=== PATIENT | male | born 1935 | race Caucasian/White ===

== ENCOUNTER 2019-03-12 14:49 | Emergency (ER) | payer MEDICARE ==
[2019-03-12 14:59] VITALS: BP 122/78; PULSE 87; RESP 18; TEMP 98.5
--- NOTE | 2019-03-12 16:52 | XR ---
EXAMINATION TYPE: XR forearm RT DATE OF EXAM: 03/12/2019 COMPARISON: NONE HISTORY: Pain TECHNIQUE: 2 views FINDINGS: There is spurring on the olecranon process of the ulna. There is calcification at the radio humeral joint. There is narrowing of the radiocarpal joint space with mild spur formation. I see no f racture nor dislocation. There is moderate narrowing and spurring at the first carpometacarpal joint. There is no sign of elbow joint effusion. IMPRESSION: Osteoarthritis. No fracture.
--- NOTE | 2019-03-12 16:53 | XR ---
EXAMINATION TYPE: XR Hip RT and AP Pelvis DATE OF EXAM: 03/12/2019 COMPARISON: NONE HISTORY: Pain TECHNIQUE: A single AP view of the pelvis is obtained. Two views of the right hip are obtained. FINDINGS: The pelvic ring is intact. There are multiple pins fixing an apparent old subcapital fractu re of the right femur. I see no acute fracture. Sacroiliac joints appear normal. There is mild acetab ular spurring. IMPRESSION: No acute abnormality of the pelvis and right hip.
--- NOTE | 2019-03-12 17:05 | ED ---
Fall HPI - General Chief Complaint: Fall Stated Complaint: Fall, arm pain Time Seen by Provider: 03/12/19 15:43 Source: patient, RN notes reviewed, old records reviewed Mode of arrival: wheelchair - History of Present Illness Initial Comments: Patient is a 83 year old male with right forearm bruising, abrasions and right hip pain after fall. He reports he has a history of Parkinson's disease and has trouble with balance. Patient states that he had no other injury related to fall. He does state he was not ambulating at the time with a walker, and was useing a walking stick. Patient has history of right hip fracture repared with ORIF. Review of Systems ROS Statement: Those systems with pertinent positive or pertinent negative responses have been documented in the HPI. ROS Other: All systems not noted in ROS Statement are negative. Past Medical History Additional Past Medical History / Comment(s): glaucoma, parkinsons History of Any Multi-Drug Resistant Organisms: None Reported Past Surgical History: Orthopedic Surgery Past Psychological History: No Psychological Hx Reported Smoking Status: Never smoker Past Alcohol Use History: None Reported Past Drug Use History: None Reported General Exam - General Exam Comments Initial Comments: This is a 83 year old male, no distress. Limitations: no limitations General appearance: alert Head exam: Present: atraumatic, normocephalic, normal inspection Eye exam: Present: normal appearance, PERRL, EOMI. Absent: scleral icterus, conjunctival injection, periorbital swelling ENT exam: Present: normal exam, mucous membranes moist Neck exam: Present: normal inspection. Absent: tenderness, meningismus, lymphadenopathy Respiratory exam: Present: normal lung sounds bilaterally. Absent: respiratory distress, wheezes, rales, rhonchi, stridor Cardiovascular Exam: Present: regular rate, normal rhythm, normal heart sounds. Absent: systolic murmur, diastolic murmur, rubs, gallop, clicks GI/Abdominal exam: Present: soft, normal bowel sounds. Absent: distended, tenderness, guarding, rebound, rigid Extremities exam: Present: normal inspection, full ROM, normal capillary refill, other (contusion measuring 5 cm over right proximal ulna. Patient has small abrasion over arm. full ROM of elbow and forearm noted. ). Absent: tenderness, pedal edema, joint swelling, calf tenderness Right Hip exam: Present: normal inspection, full ROM Upper Leg exam: Present: normal inspection, full ROM Knee exam: Present: normal inspection, full ROM Gait: observed and normal Back exam: Present: normal inspection Neurological exam: Present: alert, oriented X3, CN II-XII intact, other (resting tremor noted. ) Psychiatric exam: Present: normal affect, normal mood Skin exam: Present: warm, dry, intact, normal color. Absent: rash Course Vital Signs 03/12/19 14:55 Temperature 98.5 F Pulse Rate 87 Respiratory 18 Rate Blood Pressure 122/78 O2 Sat by Pulse 96 Oximetry Medical Decision Making - Medical Decision Making 83 year old male, Hx of parkinson disease lost balance today and fell on R forearm and hip. He has contusion and abrasion over forearm, abrasion cleaned and dressed with bandage. Patient has full range of motion of all extremity adn able to bear weight. He has a noted resting tremor concsitent with diagnosis of parkinson's disease. Patient xrays are negative for fracture. Discussed if symptoms persist to follow up with ortho. Discussed strict return parameters. Patient advised to ambulate with walker. All questions answered. - Radiology Data Radiology results: report reviewed Forearm xray is negative for fracture. R hip xray is negative for fracture or dislocation. Disposition Clinical Impression: Fall, Abrasion of arm, right, Contusion of right hip, Arm contusion Disposition: HOME SELF-CARE Condition: Good Instructions (If sedation given, give patient instructions): Fall Prevention for Older Adults (ED) Additional Instructions: Patient advised to follow-up with your primary care doctor. Return to emergency department if any alarming signs or symptoms occur. Patient should take Motrin Tylenol at home pain medication. Ice the areas that are sore. Is patient prescribed a controlled substance at d/c from ED?: No Referrals: Tod Fisher MD [Primary Care Provider] - 1-2 days Time of Disposition: 17:04
== END 2019-03-12 17:19 | disposition home or self-care (01) ==
LOC: EC 14:49
DX: S50.11XA Contusion of right forearm, initial encounter (principal); S70.01XA Contusion of right hip, initial encounter; G20 Parkinson's disease; W19.XXXA Unspecified fall, initial encounter
CPT/HCPCS: 73502; 99284

== ENCOUNTER 2019-04-02 09:51 | Emergency (ER) | payer MEDICARE ==
[2019-04-02 09:58] VITALS: RESP 18; TEMP 98.1
[2019-04-02] MEDS ORDERED: ACETAMINOPHEN TAB 500 MG TAB PO STA (10:06)
--- NOTE | 2019-04-02 10:13 | ED ---
Fall HPI - General Chief Complaint: Fall Stated Complaint: fall, back pain Time Seen by Provider: 04/02/19 09:59 Source: patient Mode of arrival: wheelchair - History of Present Illness Initial Comments: Patient is a 83-year-old male with a history of Parkinson's presents to ER after falling yesterday around 5 PM. Patient states he was in the bathroom and fell onto his right side. Patient states with history of Parkinson's he has trouble with balance. Patient states he felt okay initially and then yesterday evening started developing right-sided back pain. Patient states does have a history of ORIF of the right hip. Patient states he has pain with walking. Patient denies LOC or hitting his head. Patient denies injuries anywhere else. Patient states his pain is mostly in the right thoracic area with some radiation down into his right hip. Patient took Tylenol last night which did help with the pain. He did not take anything today. - Related Data Home Medications Medication Instructions Recorded Confirmed Amantadine HCl [Amantadine] 100 mg PO BID@1100,2200 04/02/19 04/02/19 Aspirin EC [Ecotrin Low Dose] 81 mg PO HS@0 04/02/19 04/02/19 Atorvastatin [Lipitor] 10 mg PO HS@219904/02/19 04/02/19 Carbidopa-Levodopa 25-100 mg 1 tab PO QID@0800,1100,14,18 04/02/19 04/02/19 [Sinemet 25-100] LORazepam [Ativan] 0.25 mg PO DAILY PRN 04/02/19 04/02/19 Latanoprost [Xalatan 0.005%] 1 drop BOTH EYES HS 04/02/19 04/02/19 Rasagiline Mesylate 1 mg PO DAILY@1100 04/02/19 04/02/19 Timolol [Betimol 0.5% Ophth Soln] 1 drop BOTH EYES DAILY 04/02/19 04/02/19 l-Mefol/A-Cyst/Meb12/Algal Oil 1 tab PO DAILY@0800 04/02/19 04/02/19 [Cerefolin Nac Caplet] lamoTRIgine [LaMICtal] 150 mg PO BID@1100,2200 04/02/19 04/02/19 Allergies Allergy/AdvReac Type Severity Reaction Status Date / Time No Known Allergies Allergy Verified 04/02/19 10:13 Review of Systems ROS Statement: Those systems with pertinent positive or pertinent negative responses have been documented in the HPI. ROS Other: All systems not noted in ROS Statement are negative. Past Medical History Additional Past Medical History / Comment(s): glaucoma, parkinsons History of Any Multi-Drug Resistant Organisms: None Reported Past Surgical History: Orthopedic Surgery Past Psychological History: No Psychological Hx Reported Smoking Status: Never smoker Past Alcohol Use History: None Reported Past Drug Use History: None Reported General Exam - General Exam Comments Initial Comments: GENERAL: Well-appearing, well-nourished and in no acute distress. HEAD: Atraumatic, normocephalic. EYES: Pupils equal round and reactive to light, extraocular movements intact, sclera anicteric, conjunctiva are normal. ENT: TMs normal, nares patent, oropharynx clear without exudates. Moist mucous membranes. NECK: Normal range of motion, supple without lymphadenopathy or JVD. LUNGS: Breath sounds clear to auscultation bilaterally and equal. No wheezes rales or rhonchi. HEART: Regular rate and rhythm without murmurs, rubs or gallops. ABDOMEN: Soft, nontender, normoactive bowel sounds. No guarding, no rebound. No masses appreciated. : Deferred EXTREMITIES: Pain with palpation in the thoracic lumbar paraspinal area, with some radiation down into the right hip. Pain with right lateral rib palpation. Patient has Parkinson's shuffled gait, with tremors of the extremities, mostly of the upper extremities NEUROLOGICAL: Cranial nerves II through XII grossly intact. Normal speech. PSYCH: Normal mood, normal affect. SKIN: Warm, Dry, normal turgor, no rashes or lesions noted. Limitations: no limitations Course Vital Signs 04/02/19 09:54 Temperature 98.1 F Pulse Rate 72 Respiratory 18 Rate Blood Pressure 140/86 O2 Sat by Pulse 98 Oximetry Medical Decision Making - Medical Decision Making Patient is a 83-year-old male with history of Parkinson's who fell yesterday in his bathroom. Patient denies LOC or hitting his head. Patient is complaining of right sided back pain with some radiation to his right hip. X-ray of the ribs on the right side multiple right-sided lateral rib deformities so which are chronic but there is an acute displaced fracture of the eighth and ninth ribs. X-rays of right hip and pelvis show no acute fractures or deformities. Patient will be given an incentive spirometer and is okay to take Tylenol home. Patient states it helps the pain. Patient was discharged home return parameters were discussed patient and are okay with this plan. Case discussed with Dr. Xavier. Disposition Clinical Impression: Fall, Right rib fracture Disposition: HOME SELF-CARE Condition: Stable Instructions (If sedation given, give patient instructions): Rib Fracture (ED), Fall Prevention for Older Adults (ED) Additional Instructions: Please return to the Emergency Department if symptoms worsen or any other concerns. Use Spirometer as indicated. Is patient prescribed a controlled substance at d/c from ED?: No Referrals: Tod Fisher MD [Primary Care Provider] - 1-2 days
--- NOTE | 2019-04-02 10:48 | XR ---
EXAMINATION TYPE: XR Hip RT and AP Pelvis DATE OF EXAM: 04/02/2019 COMPARISON: NONE HISTORY: Pain TECHNIQUE: A single AP view of the pelvis is obtained. Two views of the right hip are obtained. FINDINGS: There is no acute fracture/dislocation evident in the pelvis. Postsurgical change involvin g the right hip. Arthropathy of the hips bilaterally with diffuse osteopenia. Degenerative change low er lumbar spine. SI joints symmetric. There is a rounded area of lucency involving the inferior right pubic ramus near the junction with the acetabulum. Intraosseous lesion not excluded. No acute fractu re. IMPRESSION: 1. Postsurgical changes right hip. 2. lucency along the inferior right pubic ramus could be related to an intraosseous lesion. Recommend follow-up bone scan
--- NOTE | 2019-04-02 10:51 | XR ---
EXAMINATION TYPE: XR ribs RT w pa chest xray DATE OF EXAM: 04/02/2019 COMPARISON: NONE TECHNIQUE: PA view of the chest and 4 views of the right ribs are submitted. HISTORY: Pain FINDINGS: The lungs are clear and there is no pneumothorax, pleural effusion, or focal pneumonia. There are d eformities involving the right 10th, ninth, eighth, and seventh ribs. No sizable pneumothorax. Chroni c right humeral neck fracture. Arthropathy of the AC joint. Curvature the spine with hypertrophic ryan nges. IMPRESSION: 1. Multiple right-sided lateral rib deformities consistent with fracture. Some of which appear chroni c however the, there is acute displaced fracture involving the lateral margin of the right eighth and ninth ribs. Correlate with point tenderness..
[2019-04-02 11:22] VITALS: BP 130/81; PULSE 74
== END 2019-04-02 11:22 | disposition home or self-care (01) ==
LOC: EC 09:51
DX: S22.41XA Multiple fractures of ribs, right side, initial encounter for closed fracture (principal); G20 Parkinson's disease; H40.9 Unspecified glaucoma; Z79.899 Other long term (current) drug therapy; Z79.82 Long term (current) use of aspirin; W18.30XA Fall on same level, unspecified, initial encounter; Y93.89 Activity, other specified; Y92.89 Other specified places as the place of occurrence of the external cause
CPT/HCPCS: 73502; 99283

== ENCOUNTER 2019-11-05 10:09 | Observation (INO) | payer MEDICARE ==
[2019-11-05] MEDS ORDERED: SODIUM CHLORIDE 0.9% 1,000 ML IV STA ×2 (10:32→10:34)
--- NOTE | 2019-11-05 10:36 | ED ---
General Adult HPI - General Chief complaint: Seizure Stated complaint: seizure Time Seen by Provider: 11/05/19 10:20 Source: patient, EMS, RN notes reviewed, old records reviewed Mode of arrival: EMS Limitations: no limitations - History of Present Illness Initial comments: Patient is a 84-year-old male with a history of Parkinson's disease and glaucoma . He presents emergency Department today for an unresponsive episode lasting a proximally 5 minutes according to his . Patient reports that he complained of nausea, became diaphoretic and then had an episode where he stared into space for approximately 5 minutes according to . Patient's reports that he does have a history of a seizure disorder and is maintained on Lamictal. But sh e reports that he's never had an episode like this last this long or were he was completely unresponsive. Patient states that his only complaint right now is neck pain due to the position of being in the bed. Patient states that he's had no recent fevers or chills. Denies any chest pain or shortness of breath. - Related Data Home Medications Medication Instructions Recorded Confirmed Amantadine HCl [Amantadine] 100 mg PO BID@1100,0 04/02/19 04/02/19 Aspirin EC [Ecotrin Low Dose] 81 mg PO HS@219904/02/19 04/02/19 Atorvastatin [Lipitor] 10 mg PO HS@219904/02/19 04/02/19 Carbidopa-Levodopa 25-100 mg 1 tab PO QID@0800,1100,14,18 04/02/19 04/02/19 [Sinemet 25-100] LORazepam [Ativan] 0.25 mg PO DAILY PRN 04/02/19 04/02/19 Latanoprost [Xalatan 0.005%] 1 drop BOTH EYES HS 04/02/19 04/02/19 Rasagiline Mesylate 1 mg PO DAILY@1100 04/02/19 04/02/19 Timolol [Betimol 0.5% Ophth Soln] 1 drop BOTH EYES DAILY 04/02/19 04/02/19 l-Mefol/A-Cyst/Meb12/Algal Oil 1 tab PO DAILY@0800 04/02/19 04/02/19 [Cerefolin Nac Caplet] lamoTRIgine [LaMICtal] 150 mg PO BID@1100,2200 04/02/19 04/02/19 Allergies Allergy/AdvReac Type Severity Reaction Status Date / Time No Known Allergies Allergy Verified 04/02/19 10:13 Review of Systems ROS Statement: Those systems with pertinent positive or pertinent negative responses have been documented in the HPI. ROS Other: All systems not noted in ROS Statement are negative. Past Medical History Additional Past Medical History / Comment(s): glaucoma, parkinsons History of Any Multi-Drug Resistant Organisms: None Reported Past Surgical History: Orthopedic Surgery Past Psychological History: No Psychological Hx Reported Smoking Status: Never smoker Past Alcohol Use History: None Reported Past Drug Use History: None Reported General Exam - General Exam Comments Initial Comments: 84-year-old male. Alert and oriented 3. Limitations: no limitations General appearance: alert, in no apparent distress Head exam: Present: atraumatic, normocephalic, normal inspection Eye exam: Present: normal appearance, PERRL, EOMI. Absent: scleral icterus, conjunctival injection, periorbital swelling ENT exam: Present: normal exam, mucous membranes moist Neck exam: Present: normal inspection. Absent: tenderness, meningismus, lymphadenopathy Respiratory exam: Present: normal lung sounds bilaterally. Absent: respiratory distress, wheezes, rales, rhonchi, stridor Cardiovascular Exam: Present: regular rate, normal rhythm, normal heart sounds. Absent: systolic murmur, diastolic murmur, rubs, gallop, clicks GI/Abdominal exam: Present: soft, normal bowel sounds. Absent: distended, tenderness, guarding, rebound, rigid Extremities exam: Present: normal inspection, full ROM, normal capillary refill. Absent: tenderness, pedal edema, joint swelling, calf tenderness Back exam: Present: normal inspection Neurological exam: Present: alert, oriented X3, CN II-XII intact, abnormal gait (Patient reports he ambulates with a walker. Unable to test gait is patient's in bed.), other ( has resting tremor, consistent with Parkinson's.). Absen t: normal gait Expanded Patient oriented to: Present: person, place, time Speech: Present: fluid speech Cranial nerves: EOM's Intact: Normal Cerebellar function: Finger to Nose: Normal Upper motor neuron: Pronator Drift: Normal Sensory exam: Upper Extremity Light Touch: Normal, Lower Extremity Light Touch: Normal Motor strength exam: RUE: 5, LUE: 5, RLE: 5, LLE: 5 Eye Response: (4) open spontaneously Motor Response: (6) obeys commands Verbal Response: (5) oriented Ash Total: 15 Psychiatric exam: Present: normal affect, normal mood Skin exam: Present: warm, dry, intact, normal color. Absent: rash Course Vital Signs 11/05/19 10:15 Temperature 97.4 F L Pulse Rate 75 Respiratory 20 Rate Blood Pressure 100/65 O2 Sat by Pulse 97 Oximetry Medical Decision Making - Medical Decision Making The Patient supposed asexual male with a history of Parkinson's disease. He presents today for evaluation for an unresponsive episode lasting naproxen 5 minutes. Patient's reports he became diaphoretic, started to stare off into space and would not respond her questioning. Patient arriving here states he is nauseated, but cannot explain what happened to him. He denies any pains at this time. Patient's CT of the brain shows some chronic atrophy, without any acute intracranial process. No mass effects. Patient's blood work was reviewed relatively unremarkable. EKG was read generally poor study due to patient's tremors and shaking. He has no acute neurological deficits at this time is alert and oriented 3. He does appear to be in good spirits. I did discuss concern for possible TIA related to the patient's symptoms of unresponsive episode today. Patient's is agreeable to this. I discussed that we can admit the Patient for further evaluation with neurology consult. His neurologist is Dr. Mccray. Discussed that they can be in contact with Dr. Mccray he has not admit here. Family is agreeable to this. - Lab Data Result diagrams: 11/05/19 10:50 11/05/19 10:50 Lab Results 11/05/19 11/05/19 11/05/19 Range/Units 10:50 10:50 10:50 WBC 7.2 (3.8-10.6) k/uL RBC 4.92 (4.30-5.90) m/uL Hgb 14.0 (13.0-17.5) gm/dL Hct 42.9 (39.0-53.0) % MCV 87.2 (80.0-100.0) fL MCH 28.4 (25.0-35.0) pg MCHC 32.5 (31.0-37.0) g/dL RDW 12.5 (11.5-15.5) % Plt Count 206 (150-450) k/uL Neutrophils % 81 % Lymphocytes % 7 % Monocytes % 5 % Eosinophils % 2 % Basophils % 3 % Neutrophils # 5.8 (1.3-7.7) k/uL Lymphocytes # 0.5 L (1.0-4.8) k/uL Monocytes # 0.4 (0-1.0) k/uL Eosinophils # 0.2 (0-0.7) k/uL Basophils # 0.2 (0-0.2) k/uL PT 11.3 (9.0-12.0) sec INR 1.1 (<1.2) APTT 21.9 L (22.0-30.0) sec Sodium 140 (137-145) mmol/L Potassium 5.3 H (3.5-5.1) mmol/L Chloride 107 (98-107) mmol/L Carbon Dioxide 25 (22-30) mmol/L Anion Gap 8 mmol/L BUN 33 H (9-20) mg/dL Creatinine 1.07 (0.66-1.25) mg/dL Est GFR (CKD-EPI)AfAm 73 (>60 ml/min/1.73 sqM) Est GFR (CKD-EPI)NonAf 63 (>60 ml/min/1.73 sqM) Glucose 127 H (74-99) mg/dL Calcium 9.7 (8.4-10.2) mg/dL Total Bilirubin 1.0 (0.2-1.3) mg/dL AST 33 (17-59) U/L ALT 8 (4-49) U/L Alkaline Phosphatase 59 (38-126) U/L Troponin I (0.000-0.034) ng/mL Total Protein 7.8 (6.3-8.2) g/dL Albumin 4.8 (3.5-5.0) g/dL 11/05/19 Range/Units 10:50 WBC (3.8-10.6) k/uL RBC (4.30-5.90) m/uL Hgb (13.0-17.5) gm/dL Hct (39.0-53.0) % MCV (80.0-100.0) fL MCH (25.0-35.0) pg MCHC (31.0-37.0) g/dL RDW (11.5-15.5) % Plt Count (150-450) k/uL Neutrophils % % Lymphocytes % % Monocytes % % Eosinophils % % Basophils % % Neutrophils # (1.3-7.7) k/uL Lymphocytes # (1.0-4.8) k/uL Monocytes # (0-1.0) k/uL Eosinophils # (0-0.7) k/uL Basophils # (0-0.2) k/uL PT (9.0-12.0) sec INR (<1.2) APTT (22.0-30.0) sec Sodium (137-145) mmol/L Potassium (3.5-5.1) mmol/L Chloride (98-107) mmol/L Carbon Dioxide (22-30) mmol/L Anion Gap mmol/L BUN (9-20) mg/dL Creatinine (0.66-1.25) mg/dL Est GFR (CKD-EPI)AfAm (>60 ml/min/1.73 sqM) Est GFR (CKD-EPI)NonAf (>60 ml/min/1.73 sqM) Glucose (74-99) mg/dL Calcium (8.4-10.2) mg/dL Total Bilirubin (0.2-1.3) mg/dL AST (17-59) U/L ALT (4-49) U/L Alkaline Phosphatase (38-126) U/L Troponin I <0.012 (0.000-0.034) ng/mL Total Protein (6.3-8.2) g/dL Albumin (3.5-5.0) g/dL 11/05/19 10:57 EKG shows accelerated junctional rhythm, moderate voltage criteria for LVH. Junctional ST depression probably normal. Ventricular rate of 73 beats were minute period. Normal integument. QRS duration is 76 ms. QT QTc is 406/447 ms. - Radiology Data Radiology results: report reviewed Chest x-ray shows No acute cardiopulmonary process. CT shows age-related changes of atrophy and probable chronic small vessel ischemia. No acute abnormalities are evident. Disposition Clinical Impression: Unresponsive episode, Hx of Parkinson's disease Disposition: ADMITTED IP TO THIS HOSP Condition: Stable Is patient prescribed a controlled substance at d/c from ED?: No Referrals: Tod Fisher MD [Primary Care Provider] - 1-2 days Time of Disposition: 12:41
[2019-11-05 11:11] LABS: Basophils # (A) 0.2 k/uL (0-0.2); Basophils % (A) 3 %; Eosinophils # (A) 0.2 k/uL (0-0.7); Eosinophils % (A) 2 %; HCT 42.9 % (39.0-53.0); Lymphocytes # (A) 0.5 k/uL (1.0-4.8); Lymphocytes % (A) 7 %; MCH 28.4 pg (25.0-35.0); MCHC 32.5 g/dL (31.0-37.0); MCV 87.2 fL (80.0-100.0); Mean Platelet Volume 8.3; Monocytes # (A) 0.4 k/uL (0-1.0); Monocytes % (A) 5 %; Neutrophils # (A) 5.8 k/uL (1.3-7.7); Neutrophils % (A) 81 %; Platelet Count 206 k/uL (150-450); RBC 4.92 m/uL (4.30-5.90); RDW 12.5 % (11.5-15.5); WBC 7.2 k/uL (3.8-10.6)
[2019-11-05 11:41] LABS: Albumin 4.8 g/dL (3.5-5.0); Calcium 9.7 mg/dL (8.4-10.2); Total Protein 7.8 g/dL (6.3-8.2)
--- NOTE | 2019-11-05 11:41 | CT ---
EXAMINATION TYPE: CT brain wo con DATE OF EXAM: 11/05/2019 COMPARISON: None HISTORY: Seizure activity today with history of Parkinsons CT DLP: 1172.4 mGycm Automated exposure control for dose reduction was used. CT performed through the brain using departnd nta protocol FINDINGS: There is cortical atrophy present. Periventricular white matter low-attenuation is noted. There are c erebral vascular calcifications present. No hemorrhage or hydrocephalus. Calvarium is intact. Metalli c density present along the medial superior right lobe surface. Paranasal sinuses are well aerated. C alvarium is intact. IMPRESSION: AGE-RELATED CHANGES OF L3 AND PROBABLE CHRONIC SMALL VESSEL ISCHEMIA, ADDITIONAL FINDINGS ABOVE. NO A CUTE ABNORMALITIES EVIDENT.
[2019-11-05 11:50] LABS: INR 1.1 (<1.2); Prothrombin Time 11.3 sec (9.0-12.0)
[2019-11-05 11:51] LABS: Partial Thromboplastin Time 21.9 sec (22.0-30.0); Potassium 5.3 mmol/L (3.5-5.1)
--- NOTE | 2019-11-05 12:08 | XR ---
EXAMINATION TYPE: XR chest 2V DATE OF EXAM: 11/05/2019 COMPARISON: Prior chest x-ray 04/02/2019 HISTORY: Altered mental status, abnormal chest x-ray TECHNIQUE: Frontal and lateral views of the chest are obtained. FINDINGS: There is no focal air space opacity, pleural effusion, or pneumothorax seen. The cardiac silhouette size is within normal limits. The osseous structures are stable, there is evidence of pr ior rib fractures, prior fracture and the proximal right humerus. Aorta is dense. Prominent lung volu mes with flattening the hemidiaphragms may be indicative of underlying COPD. IMPRESSION: No acute cardiopulmonary process.
[2019-11-05] MEDS ORDERED: HYDROcodone/APAP 5-325MG 1 EACH TAB PO PRN (12:42)
[2019-11-05] MEDS ORDERED: ACETAMINOPHEN TAB 325 MG TAB PO PRN (12:42)
[2019-11-05] MEDS ORDERED: NALOXONE 0.4 MG/ML 1 ML VIAL IV PRN (12:42)
[2019-11-05 13:11] LABS: Appearance,Urine Clear (Clear); Bilirubin,Urine Negative (Negative); Blood,Urine Negative (Negative); Color,Urine Yellow; Glucose,Urine (UA) Negative (Negative); Hyaline Casts,Urine 3 /lpf (0-2); Ketones,Urine Trace (Negative); Leukocyte Esterase,Urine Negative (Negative); Mucus,Urine Occasional /hpf; Nitrite,Urine Negative (Negative); PH, Urine 6.5 (5.0-8.0); Protein,Urine 1+ (Negative); RBC,Urine 1 /hpf (0-5); Urobilinogen,Urine <2.0 mg/dL (<2.0); WBC,Urine 1 /hpf (0-5)
[2019-11-05] MEDS: SODIUM CHLORIDE 0.9% 1,000 ML IV SCH ×2 (14:03→20:31)
[2019-11-05] MEDS: CARBIDOPA-LEVODOPA 25-100 MG 1 EACH TAB PO SCH (17:27)
[2019-11-05] MEDS: AMANTADINE HCL 100 MG CAP PO SCH (20:33)
[2019-11-05] MEDS: lamoTRIgine 100 MG TAB PO SCH (20:33)
[2019-11-05] MEDS ORDERED: LATANOPROST 0.005% OPHTH DROPS 2.5 ML BTL BOTH EYES SCH (21:00)
--- NOTE | 2019-11-05 21:40 | P.HPIM ---
History of Present Illness H&P Date: 11/05/19 Chief Complaint: Unresponsiveness Patient is a 84-year-old male with a known history of seizure disorder, Parkinson's disease, hyperlipidemia and bilateral glaucoma and previous history of smoking was brought to the hospital by his with complaints of unresponsive episode lasting about 5 minutes this morning. According to the patient he does not know whether he lost consciousness or not. Patient says that he was having nausea and became diaphoretic and became unresponsive. Patient felt generalized weakness for about an hour and back to his baseline after that. Patient does have a history of seizure disorder and currently taking Lamictal at home. No recent episodes of seizures or medication change. Denied any shaking movements of the upper or lower extremities. No loss of bowel or bladder control. Denied any palpitations. Patient does have constant chronic Parkinson's tremor. Currently patient denied any chest pain or shortness of breath. Denied any recent illnesses. No recent travel or sick contacts at home. Denied any nasal congestion or runny nose. EKG showed accelerated junctional rhythm with heart rate 73 Chest x-ray shows No acute cardiopulmonary process. CT shows age-related changes of atrophy and probable chronic small vessel isc hemia. No acute abnormalities are evident. BUN 33 and potassium 5.3 with slight hemolysis. Urinalysis is negative for infection. Review of Systems Constitutional: Patient denies any fever or chills . No generalized weakness or weight loss. Abdomen: Patient denied nausea vomiting and diarrhea and abdominal pain. Cardiovascular: Patient denies any chest pain or short of breath no palpitations. Respiratory: patient denied any cough is from production. No shortness of breath Neurologic: Patient denied any numbness or tingling headache. Musculoskeletal: Patient denies any complaints of joint swelling or deformity. Skin: Negative Psychiatric: Negative Endocrine: No heat or cold intolerance. No recent weight gain. Genitourinary: No dysuria or hematuria. All other 14 point ROS negative except the above Past Medical History Past Medical History: Eye Disorder, Hyperlipidemia, Neurologic Disorder, Seizure Disorder Additional Past Medical History / Comment(s): Parkinson's disease, bilateral glaucoma, cervical pain at times, arthritis bilateral hands/fingers. History of Any Multi-Drug Resistant Organisms: None Reported Past Surgical History: Orthopedic Surgery, Tonsillectomy Additional Past Surgical History / Comment(s): Colonoscopy, R hip fracture with pin, bilateral cataract removals/lens implants Past Anesthesia/Blood Transfusion Reactions: No Reported Reaction Smoking Status: Former smoker - Past Family History Father Family Medical History: Cancer Additional Family Medical History / Comment(s): Father had bladder cancer with successful surgical intervention. He lived to be 85 yrs. old. Mother Family Medical History: No Reported History Additional Family Medical History / Comment(s): Mother was healthy and lived to be 93 yrs old. Medications and Allergies Home Medications Medication Instructions Recorded Confirmed Type Amantadine HCl [Amantadine] 100 mg PO BID@1100,2200 04/02/19 11/05/19 History Aspirin EC [Ecotrin Low Dose] 81 mg PO HS@0 04/02/19 11/05/19 History Atorvastatin [Lipitor] 10 mg PO HS@219904/02/19 11/05/19 History Carbidopa-Levodopa 25-100 mg 1 tab PO QID@0800,1100,14,18 04/02/19 11/05/19 History [Sinemet 25-100] Latanoprost [Xalatan 0.005%] 1 drop BOTH EYES HS 04/02/19 11/05/19 History Rasagiline Mesylate 1 mg PO DAILY@1100 04/02/19 11/05/19 History Timolol [Betimol 0.5% Ophth Soln] 1 drop BOTH EYES DAILY 04/02/19 11/05/19 History l-Mefol/A-Cyst/Meb12/Algal Oil 1 tab PO DAILY@1100 04/02/19 11/05/19 History [Cerefolin Nac Caplet] lamoTRIgine [LaMICtal] 150 mg PO BID@1100,2200 04/02/19 11/05/19 History Mirabegron [Myrbetriq] 50 mg PO DAILY@0800 11/05/19 11/05/19 History Allergies Allergy/AdvReac Type Severity Reaction Status Date / Time No Known Allergies Allergy Verified 11/05/19 13:33 Physical Exam Vitals: Vital Signs Temp Pulse Pulse Resp BP BP Pulse Ox 11/05/19 20:00 98.4 F 91 18 102/48 96 11/05/19 17:30 97.4 F L 81 137/80 97 11/05/19 16:39 60 16 105/95 97 11/05/19 13:09 80 16 128/87 98 11/05/19 10:15 97.4 F L 75 20 100/65 97 Intake and Output 11/05/19 11/05/19 11/05/19 06:59 14:59 22:59 Intake Total 240 Balance 240 Intake: Oral 240 Other: Weight 61.235 kg 61.235 kg PHYSICAL EXAMINATION: Patient is lying in the bed comfortably, no acute distress, awake alert and oriented.. HEENT: Normocephalic. Neck is supple. Pupils reactive. Nostrils clear. Oral cavi ty is moist. Ears reveal no drainage. Neck reveals no JVD, carotid bruits, or thyromegaly. CHEST EXAMINATION: Trachea is central. Symmetrical expansion. Lung trotter clear to auscultation and percussion. CARDIAC: Normal S1, S2 with no gallops. No murmurs ABDOMEN: Soft. Bowel sounds normal. No organomegaly. No abdominal bruits. Extremities: reveal no edema. No clubbing or cyanosis Neurologically awake, alert, oriented x2-3 with well-coordinated movements. No focal deficits noted. patient does have tremors at baseline Skin: No rash or skin lesions. Psychiatric: Coperative. Nonsuicidal Musculoskeletal: No joint swelling or deformity. Normal range of motion. Results CBC & Chem 7: 11/05/19 10:50 11/05/19 10:50 Labs: Abnormal Lab Results - Last 24 Hours (Table) 11/05/19 11/05/19 11/05/19 Range/Units 10:50 10:50 10:50 Lymphocytes # 0.5 L (1.0-4.8) k/uL APTT 21.9 L (22.0-30.0) sec Potassium 5.3 H (3.5-5.1) mmol/L BUN 33 H (9-20) mg/dL Glucose 127 H (74-99) mg/dL Urine Protein (Negative) Urine Ketones (Negative) Hyaline Casts (0-2) /lpf Urine Mucus (None) /hpf 11/05/19 Range/Units 12:52 Lymphocytes # (1.0-4.8) k/uL APTT (22.0-30.0) sec Potassium (3.5-5.1) mmol/L BUN (9-20) mg/dL Glucose (74-99) mg/dL Urine Protein 1+ H (Negative) Urine Ketones Trace H (Negative) Hyaline Casts 3 H (0-2) /lpf Urine Mucus Occasional H (None) /hpf Thrombosis Risk Factor Assmnt - DVT/VTE Prophylaxis DVT/VTE Prophylaxis: Pharmacologic Prophylaxis ordered - Choose All That Apply Any of the Below Risk Factors Present?: Yes Other Risk Factors: Yes Each Risk Factor Represents 3 Points: Age 75 years or older Other congenital or acquired thrombophilia - If yes, enter type in comment: No Thrombosis Risk Factor Assessment Total Risk Factor Score: 3 Thrombosis Risk Factor Assessment Level: Moderate Risk Assessment and Plan Assessment: Acute unresponsiveness followed by generalized weakness. Possible seizure episode. Rule out TIA. History of seizure disorder Parkinson's disease with tremors Hyperlipidemia Bilateral glaucoma Previous history of smoking DVT prophylaxis. Heparin subcu plan: Patient will be continued on the monitoring. CT head showed no acute intracranial process. Continue with seizure precautions and fall precautions. Continue with home dose of Lamictal and neurology was consulted. Continue with medications including amantadine and carbidopa levodopa. Follow up closely and further recommendations based on the clinical course. Discussed with his at bedside. Time with Patient: Greater than 30
[2019-11-05] MEDS ORDERED: ATORVASTATIN 10 MG TAB PO SCH (22:00)
[2019-11-05] MEDS ORDERED: ASPIRIN 81 MG PO SCH (22:00)
[2019-11-06 07:31] LABS: African American GFR (CKD) >90 (>60 ml/min/1.73 sqM); Anion Gap 7 mmol/L; Blood Urea Nitrogen 24 mg/dL (9-20); Calcium 8.7 mg/dL (8.4-10.2); Carbon Dioxide 25 mmol/L (22-30); Chloride 109 mmol/L (98-107); Glucose 98 mg/dL (74-99); Non-African American GFR(CKD) 79 (>60 ml/min/1.73 sqM); Potassium 4.1 mmol/L (3.5-5.1); Sodium 141 mmol/L (137-145)
[2019-11-06] MEDS ORDERED: NON FORMULARY DRUG (Mirabegron [Myrbetriq] 50 MG) PO SCH (08:00)
[2019-11-06] MEDS: CARBIDOPA-LEVODOPA 25-100 MG 1 EACH TAB PO SCH ×3 (08:24→14:54)
[2019-11-06] MEDS ORDERED: PANTOPRAZOLE 40 MG/10 ML VIAL IV SCH (09:00)
[2019-11-06] MEDS ORDERED: TIMOLOL 0.5% OPHTH DROPS 5 ML BTL BOTH EYES SCH (09:00)
[2019-11-06] MEDS ORDERED: RASAGILINE MESYLATE 1 MG PO SCH (11:00)
[2019-11-06] MEDS ORDERED: [UNRECOGNIZED DRUG - OTHER] PO SCH (11:00)
[2019-11-06 11:19] VITALS: TEMP 98.7
[2019-11-06] MEDS: lamoTRIgine 100 MG TAB PO SCH (11:20)
[2019-11-06] MEDS: AMANTADINE HCL 100 MG CAP PO SCH (11:20)
[2019-11-06 12:05] VITALS: BP 130/79; PULSE 70; RESP 17
[2019-11-07] MEDS ORDERED: PANTOPRAZOLE 40 MG TABLET PO SCH (07:30)
--- NOTE | 2019-11-07 09:18 | P.CNNES ---
History of Present Illness Consult date: 11/06/19 Reason for Consult: concern for TIA Chief complaint: an episode of blank stare History of Present Illness: HISTORY OF PRESENT ILLNESS: Thank you for allowing me to evaluate Mr. Bradly Dempsey. Mr. Dempsey is a 84 year-old man with PMhx of Parkinson's disease, seizure and glaucoma, presented to [facility] for an unresponsive episode lasting ~5 minutes. Patient's is at bedside for corroborating information. Patient is followed by Dr. Rod. There has not been any changes to his meds recently. Last visit about 3 months ago. states that patient has these seizure episodes about once a month, and he's been having monthly episodes for a while. felt that this episode was slightly different because it lasted a bit longer. Patient did not have any urinary/bowel incontinence or tongue biting. Patient has been compliant with his meds. No recent sickness, sleep deprivation, stressors, fever, nausea, vomiting, diarrhea, chest pain, or SOB. Denies any new weakness, numbness or tingling. Patient was diagnosed with parkinson's disease about 20 years ago, and his R side is more affected than his L. PAST MEDICAL HISTORY: Parkinson's disease, seizure and glaucoma PAST SURGICAL HISTORY: Orthopedic surgery HOME MEDICATIONS: Timolol, ASA, Rasagiline, atorvastatin, sinemet, amantadine, lamotrigine 150mg BID, mirabegron ALLERGIES: NKDA SOCIAL HISTORY: Never smoker REVIEW OF SYSTEMS: The 14 systems are reviewed and no additional points are identified compared to the review of systems documented history and physical PHYSICAL EXAMINATION: VITAL SIGNS: T 98.7 HR 78 RR 20 BP 120/80 O2 sat 93% on RA GEN.: NAD, pleasant and cooperative HEENT: NCAT, sclera without icterus NECK: Supple SKIN AND EXTREMITIES: Warm to touch, no edema NEURO: MENTAL STATUS: Patient alert and oriented to self, place, time. Able to name the current president. Speech fluent, able to name and repeat, following all commands readily. No right and left disorientation, neglect. CRANIAL NERVES II THROUGH XII: II: Pupils are equal and reactive to light symmetrically. Visual trotter are intact to confrontation. III, IV, : No ptosis. Extraocular movements full. No nystagmus. V: Facial sensation intact from V1-3. VII. No clear facial asymmetry. VIII: Hearing intact to finger rub bilaterally. IX, X: Symmetric palate elevation. XI: Shoulder shrug intact. XII: Tongue midline without fasciculation or atrophy. MOTOR: Decreased bulk. Increased tone in b/l UE and LE. No pronator drift. Resting tremor, worse in RUE and LUE. Strength is 4+/5 throughout all 4 extremities. SENSORY: Intact to light touch in all 4 extremities. REFLEXES: 1+ throughout. Toes are downgoing. COORDINATION: Finger to nose intact. No dysmetria but with some tremor. GAIT: not assessed DIAGNOSTIC TESTING: LABORATORY: WBC 7.2 Hgb 14.0 Platelet 206 Na 140 K 5.3 Cl 107 CO2 25 BUN 33 Cr 1.07 glucose 127 AST 33 ALT 8 AlkPhos 59 Troponin <0.012 Urinalysis negative IMAGING: CT Head w/o contrast 11/05/2019: Age-related changes probable chronic small vessel ischemia. No acute abnormali ties evident. ASSESSMENT/RECOMMENDATIONS: 84 year-old man with PMhx of Parkinson's disease, seizure and glaucoma, presented to [facility] for an unresponsive episode lasting ~5 minutes. Patient with history of very similar episodes, knows them as his usual seizure episodes, and there has not been any increased frequency. No change in his seizure medication. Patient to follow up with his outpatient Neurologist within 2-3 weeks of discharge. Can consider MRI brain w/o contrast, but low concern for TIA. ABCD2 score 1. Patient stable for discharge from [facility]. Past Medical History Past Medical History: Eye Disorder, Hyperlipidemia, Neurologic Disorder, Seizure Disorder Additional Past Medical History / Comment(s): Parkinson's disease, bilateral glaucoma, cervical pain at times, arthritis bilateral hands/fingers. History of Any Multi-Drug Resistant Organisms: None Reported Past Surgical History: Orthopedic Surgery, Tonsillectomy Additional Past Surgical History / Comment(s): Colonoscopy, R hip fracture with pin, bilateral cataract removals/lens implants Past Anesthesia/Blood Transfusion Reactions: No Reported Reaction Smoking Status: Former smoker - Past Family History Father Family Medical History: Cancer Additional Family Medical History / Comment(s): Father had bladder cancer with successful surgical intervention. He lived to be 85 yrs. old. Mother Family Medical History: No Reported History Additional Family Medical History / Comment(s): Mother was healthy and lived to be 93 yrs old. Medications and Allergies Home Medications Medication Instructions Recorded Confirmed Type Amantadine HCl [Amantadine] 100 mg PO BID@1100,0 04/02/19 11/05/19 History Aspirin EC [Ecotrin Low Dose] 81 mg PO HS@219904/02/19 11/05/19 History Atorvastatin [Lipitor] 10 mg PO HS@219904/02/19 11/05/19 History Carbidopa-Levodopa 25-100 mg 1 tab PO QID@0800,1100,14,18 04/02/19 11/05/19 History [Sinemet 25-100 mg] Latanoprost [Xalatan 0.005%] 1 drop BOTH EYES HS 04/02/19 11/05/19 History Rasagiline Mesylate 1 mg PO DAILY@1100 04/02/19 11/05/19 History Timolol [Betimol 0.5% Ophth Soln] 1 drop BOTH EYES DAILY 04/02/19 11/05/19 History l-Mefol/A-Cyst/Meb12/Algal Oil 1 tab PO DAILY@1100 04/02/19 11/05/19 History [Cerefolin Nac Caplet] lamoTRIgine [LaMICtal] 150 mg PO BID@1100,0 04/02/19 11/05/19 History Mirabegron [Myrbetriq] 50 mg PO DAILY@0800 11/05/19 11/05/19 History Allergies Allergy/AdvReac Type Severity Reaction Status Date / Time No Known Allergies Allergy Verified 11/05/19 13:33 Physical Examination - Vital Signs Vital Signs: Vital Signs Temp Pulse Pulse Resp BP BP Pulse Ox 11/06/19 03:16 83 18 11/06/19 03:15 98.2 F 83 18 147/89 96 11/05/19 23:17 64 18 11/05/19 23:15 98.3 F 64 18 141/59 95 11/05/19 20:00 98.4 F 91 18 102/48 96 11/05/19 17:30 97.4 F L 81 137/80 97 11/05/19 16:39 60 16 105/95 97 11/05/19 13:09 80 16 128/87 98 Intake and Output 11/05/19 11/06/19 11/06/19 22:59 06:59 14:59 Intake Total 600 240 Output Total 0 Balance 600 240 Intake: Oral 600 240 Output: Urine 0 Other: # Voids 1 1 Weight 61.235 kg 60.7 kg Results - Laboratory Findings CBC and BMP: 11/05/19 10:50 11/06/19 06:59 Abnormal Lab Findings: Abnormal Labs 11/05/19 11/05/19 11/05/19 10:50 10:50 10:50 Lymphocytes # 0.5 L APTT 21.9 L Potassium 5.3 H Chloride BUN 33 H Glucose 127 H Urine Protein Urine Ketones Hyaline Casts Urine Mucus 11/05/19 11/06/19 12:52 06:59 Lymphocytes # APTT Potassium Chloride 109 H BUN 24 H Glucose Urine Protein 1+ H Urine Ketones Trace H Hyaline Casts 3 H Urine Mucus Occasional H
--- NOTE | 2019-11-09 12:58 | P.DS ---
Providers Date of admission: 11/05/19 12:54 Expected date of discharge: 11/06/19 Attending physician: Tabby Guevara Consults: 11/05/19 12:42 Consult Physician Stat Consulting Provider: Adela Montoya Reason/Comments: TIA vs. Seizure Do you want consulting provider notified?: Yes Primary care physician: Tod Young [facility] Course: Discharge diagnosis Acute unresponsiveness followed by generalized weakness. Likely due to seizure episode. Ruled out CVA. Seen by neurology. History of seizure disorder Parkinson's disease with tremors Hyperlipidemia Bilateral glaucoma Previous history of smoking DVT prophylaxis. Heparin subcu Hospital course Patient is a 84-year-old male with a known history of seizure disorder, Parkinson's disease, hyperlipidemia and bilateral glaucoma and previous history of smoking was brought to the hospital by his with complaints of unresponsive episode lasting about 5 minutes this morning. According to the patient he does not know whether he lost consciousness or not. Patient says that he was having nausea and became diaphoretic and became unresponsive. Patient felt generalized weakness for about an hour and back to his baseline after that. Patient does have a history of seizure disorder and currently taking Lamictal at home. No recent episodes of seizures or medication change. Denied any shaking movements of the upper or lower extremities. No loss of bowel or bladder control. Denied any palpitations. Patient does have constant chronic Parkinson's tremor. Currently patient denied any chest pain or short ness of breath. Denied any recent illnesses. No recent travel or sick contacts at home. Denied any nasal congestion or runny nose. EKG showed accelerated junctional rhythm with heart rate 73 Chest x-ray shows No acute cardiopulmonary process. CT shows age-related changes of atrophy and probable chronic small vessel ischemia. No acute abnormalities are evident. BUN 33 and potassium 5.3 with slight hemolysis. Urinalysis is negative for infection. 11/06/2019 Patient is awake alert and oriented 3. Mentation is at baseline as per his at bedside. Patient did have unresponsive episode about 5 minutes at home which is longer than his recurrent episodes of unresponsiveness at home. Lamotrigine level is 6.2 which is therapeutic limits. Patient was seen by neurology and recommends no change in dosing of new medications at this time. Patient was advised to follow up with his neurologist as an outpatient. Patient is afebrile and no complaints of chest pain or shortness of breath. Tolerating oral diet. Patient is being discharged home with his family. PHYSICAL EXAMINATION: Patient is lying in the bed comfortably, no acute distress, awake alert and oriented.. HEENT: Normocephalic. Neck is supple. Pupils reactive. Nostrils clear. Oral cavity is moist. Ears reveal no drainage. Neck reveals no JVD, carotid bruits, or thyromegaly. CHEST EXAMINATION: Trachea is central. Symmetrical expansion. Lung trotter clear to auscultation and percussion. CARDIAC: Normal S1, S2 with no gallops. No murmurs ABDOMEN: Soft. Bowel sounds normal. No organomegaly. No abdominal bruits. Extremities: reveal no edema. No clubbing or cyanosis Neurologically awake, alert, oriented x2-3 with well-coordinated movements. No focal deficits noted. patient does have tremors at baseline Skin: No rash or skin lesions. Psychiatric: Coperative. Nonsuicidal Musculoskeletal: No joint swelling or deformity. Normal range of motion. Vital Signs Temp Pulse Pulse Resp BP BP Pulse Ox 11/06/19 03:16 83 18 11/06/19 03:15 98.2 F 83 18 147/89 96 11/05/19 23:17 64 18 11/05/19 23:15 98.3 F 64 18 141/59 95 11/05/19 20:00 98.4 F 91 18 102/48 96 11/05/19 17:30 97.4 F L 81 137/80 97 11/05/19 16:39 60 16 105/95 97 11/05/19 13:09 80 16 128/87 98 Intake and Output 11/05/19 11/06/19 11/06/19 22:59 06:59 14:59 Intake Total 600 240 Output Total 0 Balance 600 240 Intake: Oral 600 240 Output: Urine 0 Other: # Voids 1 1 Weight 61.235 kg 60.7 kg Patient Condition at Discharge: Stable Plan - Discharge Summary Discharge Rx Participant: No New Discharge Prescriptions: Continue Timolol [Betimol 0.5% Ophth Soln] 1 drop BOTH EYES DAILY Latanoprost [Xalatan 0.005%] 1 drop BOTH EYES HS Aspirin EC [Ecotrin Low Dose] 81 mg PO HS@2200 l-Mefol/A-Cyst/Meb12/Algal Oil [Cerefolin Nac Caplet] 1 tab PO DAILY@1100 Rasagiline Mesylate 1 mg PO DAILY@1100 Atorvastatin [Lipitor] 10 mg PO HS@2200 Carbidopa-Levodopa 25-100 mg [Sinemet 25-100 mg] 1 tab PO QID@0800,1100,,18 Amantadine HCl [Amantadine] 100 mg PO BID@1100,2200 lamoTRIgine [LaMICtal] 150 mg PO BID@1100,2200 Mirabegron [Myrbetriq] 50 mg PO DAILY@0800 Discharge Medication List Amantadine HCl [Amantadine] 100 mg PO BID@1100,2200 04/02/19 [History] Aspirin EC [Ecotrin Low Dose] 81 mg PO HS@219904/02/19 [History] Atorvastatin [Lipitor] 10 mg PO HS@219904/02/19 [History] Carbidopa-Levodopa 25-100 mg [Sinemet 25-100 mg] 1 tab PO QID@0800,1100,,18 04/02/19 [History] Latanoprost [Xalatan 0.005%] 1 drop BOTH EYES HS 04/02/19 [History] Rasagiline Mesylate 1 mg PO DAILY@1100 04/02/19 [History] Timolol [Betimol 0.5% Ophth Soln] 1 drop BOTH EYES DAILY 04/02/19 [History] l-Mefol/A-Cyst/Meb12/Algal Oil [Cerefolin Nac Caplet] 1 tab PO DAILY@1100 04/02/19 [History] lamoTRIgine [LaMICtal] 150 mg PO BID@1100,2200 04/02/19 [History] Mirabegron [Myrbetriq] 50 mg PO DAILY@0800 11/05/19 [History] Follow up Appointment(s)/Referral(s): Tod Fisher MD [Primary Care Provider] - 11/10/19 1:00 pm (at [facility]) Patient Instructions/Handouts: Recurrent Seizures in Adults (DC) Discharge Disposition: HOME SELF-CARE
== END 2019-11-06 15:10 | disposition home or self-care (01) ==
LOC: EC 10:09 → 3SCARD 12:54
PROVIDERS: ADMIT Hospitalist; ATTEND Hospitalist
DX: R56.9 Unspecified convulsions (principal); R53.1 Weakness; G20 Parkinson's disease; G40.909 Epilepsy, unspecified, not intractable, without status epilepticus; E78.5 Hyperlipidemia, unspecified; G31.9 Degenerative disease of nervous system, unspecified; M19.041 Primary osteoarthritis, right hand; M19.042 Primary osteoarthritis, left hand; M54.2 Cervicalgia; H40.9 Unspecified glaucoma; Z80.52 Family history of malignant neoplasm of bladder; Z87.891 Personal history of nicotine dependence; Z79.899 Other long term (current) drug therapy; Z96.1 Presence of intraocular lens; Z79.82 Long term (current) use of aspirin
CPT/HCPCS: 96374; 99285; 36415; 93005; 80053; 80048; 80175; 84484; 85025; 85610; 85730; 81001; 71046; 70450; G0378 ×2; C9113

== ENCOUNTER → 2021-08-18 | Outpatient (CLI) | payer MEDICARE ==
--- NOTE | 2021-08-18 17:32 | CT ---
EXAMINATION TYPE: CT brain wo con DATE OF EXAM: 08/18/2021 HISTORY: FELL HIT HEAD with headache. CT DLP: 1047.1 mGycm. Automated Exposure Control for Dose Reduction was Utilized. TECHNIQUE: CT scan of the head is performed without contrast. COMPARISON: CT brain November 05, 2019. FINDINGS: There is no acute intracranial hemorrhage or midline shift identified. There is mild-to-m oderate diffuse ventricular and sulcal prominence consistent with diffuse cerebral atrophy. There is moderate to advanced low-attenuation in the periventricular white matter consistent with chronic sma ll vessel ischemic change. Calvarium is intact. Scleral calcification bilateral globes with right-irais ed cortical buckle. The paranasal sinuses are grossly clear. IMPRESSION: No acute intracranial hemorrhage or midline shift. There is mild to moderate diffuse ag e-related cerebral atrophy and moderate to advanced chronic small vessel ischemic change noted.
== END ==
LOC: RADCTMAIN 16:52
PROVIDERS: ATTEND Psychiatry & Neurology Neurology
DX: I67.82 Cerebral ischemia (principal); W19.XXXA Unspecified fall, initial encounter
CPT/HCPCS: 70450

== ENCOUNTER 2022-02-11 09:42 | Emergency (ER) | payer MEDICARE ==
[2022-02-11 09:55] VITALS: BP 118/77; PULSE 60; RESP 18; TEMP 98.2
--- NOTE | 2022-02-11 11:04 | XR ---
EXAMINATION TYPE: XR lumbar spine 3 views DATE OF EXAM: 02/11/2022 Comparison: None Clinical History: 86-year-old male fall yesterday, pain Findings: Left retropulsion. Osteopenia. Facet arthropathy throughout the lumbar spine. Mild multilevel degener ative disc disease. There is a grade 2 anterolisthesis at L4-L5. Remaining alignment is maintained. V ertebral body heights are preserved. Impression: 1. Advanced hypertrophic facet arthropathy throughout. Grade 2 anterolisthesis L4-L5. 2. Mild multilevel degenerative disc disease. 3. Osteopenia. No vertebral compression collapse.
--- NOTE | 2022-02-11 11:21 | ED ---
Back Pain HPI - General Chief Complaint: Back Pain/Injury Stated Complaint: Fall 02/10/L side pain Time Seen by Provider: 02/11/22 10:13 Source: patient, family, RN notes reviewed, old records reviewed Mode of arrival: ambulatory Limitations: no limitations - History of Present Illness Initial Comments: Patient is an 86-year-old male with history of Parkinson's, hyperlipidemia, presenting to the emergency Department with complaints of left lower back pain since yesterday. Patient states he was in his kitchen, slipped on a piece of ice and fell, landing mostly on his left side. He states this morning he woke up with continued pain so came in for evaluation. He did not take anything for pain today. He denies any numbness and tingling into his extremities, no saddle paresthesia. He is able to ambulate. He did not hit his head, he has no other complaints from this this fall. - Related Data Home Medications Medication Instructions Recorded Confirmed Aspirin EC [Ecotrin Low Dose] 81 mg PO HS@219904/02/19 11/05/19 Atorvastatin [Lipitor] 10 mg PO HS@219904/02/19 11/05/19 Carbidopa-Levodopa 25-100 mg 1 tab PO QID@0800,1100,14,18 04/02/19 11/05/19 [Sinemet 25-100 mg] Latanoprost [Xalatan 0.005%] 1 drop BOTH EYES HS 04/02/19 11/05/19 Rasagiline Mesylate 1 mg PO DAILY@1100 04/02/19 11/05/19 Timolol [Betimol 0.5% Ophth Soln] 1 drop BOTH EYES DAILY 04/02/19 11/05/19 amantadine HCL [Amantadine] 100 mg PO BID@1100,0 04/02/19 11/05/19 l-Mefol/A-Cyst/Meb12/Algal Oil 1 tab PO DAILY@1100 04/02/19 11/05/19 [Cerefolin Nac Caplet] lamoTRIgine [LaMICtal] 150 mg PO BID@1100,2200 04/02/19 11/05/19 Mirabegron [Myrbetriq] 50 mg PO DAILY@0800 11/05/19 11/05/19 Allergies Allergy/AdvReac Type Severity Reaction Status Date / Time No Known Allergies Allergy Verified 02/11/22 09:54 Review of Systems ROS Statement: Those systems with pertinent positive or pertinent negative responses have been documented in the HPI. ROS Other: All systems not noted in ROS Statement are negative. Past Medical History Past Medical History: Eye Disorder, Hyperlipidemia, Neurologic Disorder, Seizure Disorder Additional Past Medical History / Comment(s): Parkinson's disease, bilateral glaucoma, cervical pain at times, arthritis bilateral hands/fingers. History of Any Multi-Drug Resistant Organisms: None Reported Past Surgical History: Orthopedic Surgery, Tonsillectomy Additional Past Surgical History / Comment(s): Colonoscopy, R hip fracture with pin, bilateral cataract removals/lens implants Past Anesthesia/Blood Transfusion Reactions: No Reported Reaction Past Psychological History: No Psychological Hx Reported Smoking Status: Former smoker Past Alcohol Use History: None Reported Past Drug Use History: None Reported - Past Family History Father Family Medical History: Cancer Additional Family Medical History / Comment(s): Father had bladder cancer with successful surgical intervention. He lived to be 85 yrs. old. Mother Family Medical History: No Reported History Additional Family Medical History / Comment(s): Mother was healthy and lived to be 93 yrs old. General Exam - General Exam Comments Initial Comments: GENERAL: Patient is well-developed and well-nourished. Patient is nontoxic and in no acute distress. HEAD: Atraumatic, normocephalic. EYES: Pupils equal round and reactive to light, extraocular movements intact, sclera anicteric, conjunctiva are normal. Eyelids were unremarkable. ENT: Moist mucous membranes. NECK: Normal range of motion, supple without lymphadenopathy or JVD. No midline tenderness. LUNGS: Unlabored respirations. Breath sounds clear to auscultation bilaterally and equal. No wheezes rales or rhonchi. HEART: Regular rate and rhythm without murmurs, rubs or gallops. ABDOMEN: Soft, nontender, normoactive bowel sounds. No guarding, no rebound. No masses appreciated. MUSCULOSKELETAL: Normal extremities with adequate strength and normal range of motion, no pitting or edema. No clubbing or cyanosis. Patient has mild pain to palpation along the left lower back, normal hip range of motion. He is able to re-. NEUROLOGICAL: Patient is alert and oriented x 3. Normal speech, normal gait. PSYCH: Normal mood, normal affect. SKIN: Warm, Dry, normal turgor, no rashes or lesions noted. Limitations: no limitations Course Vital Signs 02/11/22 09:52 Temperature 98.2 F Pulse Rate 60 Respiratory 18 Rate Blood Pressure 118/77 O2 Sat by Pulse 99 Oximetry Medical Decision Making - Medical Decision Making Patient is a 86-year-old male here with history Parkinson's, here for left-sided low back pain after he fell yesterday. This was a mechanical fall. X-rays of lumbar shows no acute fracture dislocation. Patient refused any Tylenol or Motrin today. I discussed with him his mother a contusion, recommended ice to the area, Tylenol at home. He is agreeable with this plan and he is stable for discharge. If symptoms persist, he can follow up with his PCP. Disposition Clinical Impression: Lumbar contusion, Strain of lumbar region Disposition: HOME SELF-CARE Condition: Stable Instructions (If sedation given, give patient instructions): Acute Low Back Pain (ED) Additional Instructions: Please return to the Emergency Department if symptoms worsen or any other concerns. Apply ice to the area, Tylenol for discomfort. If symptoms persist, follow up with PCP. Is patient prescribed a controlled substance at d/c from ED?: No Referrals: Tod Fisher MD [Primary Care Provider] - 1-2 days Time of Disposition: 11:20
== END 2022-02-11 11:35 | disposition home or self-care (01) ==
LOC: EC 09:42
DX: S30.0XXA Contusion of lower back and pelvis, initial encounter (principal); S39.012A Strain of muscle, fascia and tendon of lower back, initial encounter; E78.5 Hyperlipidemia, unspecified; Z87.891 Personal history of nicotine dependence; W00.9XXA Unspecified fall due to ice and snow, initial encounter; Y92.090 Kitchen in other non-institutional residence as the place of occurrence of the external cause
CPT/HCPCS: 72100; 99284